=== PATIENT | male | born 1995 | race Two or more races ===

== ENCOUNTER 2024-12-18 11:56 | Emergency (ER) | payer OTHER ==
[~2024-12-18] VITALS: Ht 180.3 cm; Wt 93.2 kg
[2024-12-18 12:02] VITALS: BP 157/98; PULSE 94; O2SAT 97
[2024-12-18 13:53] VITALS: RESP 16
[2024-12-18] MEDS: ketorolac trometh 15mg/ml vial 15 MG/ML ML IM ONE (13:53)
[2024-12-18] MEDS ORDERED: SULF1TAB49 PO (15:00)
[2024-12-18] MEDS ORDERED: CEPH-585 PO (15:00)
[2024-12-18] MEDS: TETanus/Pertussis (Acell)/Diphther VAC/PF (Tdap-Adult) 0.5ml syringe IMVAC ONE (15:11)
[2024-12-18] MEDS: LIDOcaine 1% W/epiNEPHrine 1:100,000 20ml vial IJ ONE (15:12)
[2024-12-18 15:13] VITALS: TEMP 98.2
== END 2024-12-18 15:14 | disposition home or self-care (01) ==
LOC: ER 11:58
DX: M79.5 Residual foreign body in soft tissue (principal)
CPT/HCPCS: 73564; 90471; 90715; 96372; 99284; J1885